=== PATIENT | female | born 1955 | race Caucasian/White ===

== ENCOUNTER 2019-06-10 07:33 | Emergency (ER) | payer MEDICAID ==
[2019-06-10] MEDS: NICARDipine HCL 30 MG CAPSULE PO (08:03)
[2019-06-10] MEDS: ACETAMINOPHEN 325 MG TAB PO (08:03)
== END 2019-06-10 08:48 | disposition home or self-care (01) ==
LOC: E/R 08:48
DX: I10 Essential (primary) hypertension (principal)
CPT/HCPCS: 93005; 99283-25